=== PATIENT | male | born 1970 | race Caucasian/White ===

== ENCOUNTER 2016-11-07 03:41 | Emergency (ER) | payer OTHER ==
[2016-11-07 04:06] LABS: EOSINOPHIL 1.8 % (0-5); HCT 42.9 % (42.0-52.0); HGB 15.3 g/dl (13.2-18.0); LYMPHOCYTE 39.9 % (15-48); MCH 30.2 pg (25.0-31.0); MCHC 35.7 g/dL (32.0-36.0); MCV 84.8 fL (78.0-100.0); MONOCYTE 7.1 % (0-12); NEUTROPHIL 50.2 % (41-80); PLT 226 K/uL (150-400); RBC 5.06 M/uL (4.70-6.00); RDW 12.6 % (11.5-14.0)
[2016-11-07 04:10] LABS: INR 0.99 (0.9-1.2); PROTHROMBIN TIME 12.7 SECONDS (11.7-14.0); PTT 28.6 SECONDS (23.2-31.4)
[2016-11-07 04:20] LABS: ALBUMIN 4.8 g/dL (3.5-5.0); BILIRUBIN - TOTAL 0.5 mg/dL (0.1-1.0); CREATININE 1.2 mg/dL (0.7-1.2); GLOBULIN (CALCULATION) 2.2 g/dL (2.2-4.2); POTASSIUM 3.5 mmol/L (3.5-5.1)
[2016-11-07 04:40] LABS: BILIRUBIN 3+ mg/dL (NEGATIVE); BLOOD NEGATIVE Ery/uL (NEGATIVE); CLARITY CLEAR (CLEAR); COLOR YELLOW (YELLOW); GLUCOSE (U) NORMAL (NORMAL); KETONE (U) NEGATIVE (NEGATIVE); LEUKOCYTES NEGATIVE Leu/uL (NEGATIVE); NITRITE NEGATIVE (NEGATIVE); PROTEIN NEGATIVE (NEGATIVE); SPECIFIC GRAVITY >=1.030 (1.001-1.030)
== END 2016-11-07 09:10 | disposition other institution (70) ==
LOC: FER 03:41
PROVIDERS: Emergency Medicine
DX: G45.9 Transient cerebral ischemic attack, unspecified (principal); R05 Cough; I10 Essential (primary) hypertension; R29.701 NIHSS score 1; Z79.899 Other long term (current) drug therapy; Z88.2 Allergy status to sulfonamides
CPT/HCPCS: 36415; 70450; 71010; 80053; 81003; 84484; 85025; 85610; 85730; 93005